=== PATIENT | female | born 1955 | race Caucasian/White ===

== ENCOUNTER 2017-02-20 12:16 | Emergency (ER) | payer OTHER ==
[~2017-02-20] VITALS: Ht 157.5 cm; Wt 70.5 kg
[2017-02-20 12:17] VITALS: Ht 157.5 cm; Wt 70.5 kg
[2017-02-20] MEDS ORDERED: IBUPROFEN 600 MG TAB PO ONE (13:00)
--- NOTE | 2017-02-20 13:02 | RADRPT ---
PROCEDURE: XR Left Hand. CLINICAL INDICATION: Trauma. Left thumb pain. Left hand pain. TECHNIQUE: Three views. Frontal lateral and oblique images of the left hand were obtained. COMPARISON: No prior studies are available for comparison. FINDINGS: There is no fracture or dislocation. The soft tissues are normal. Articular surfaces are intact. There is no lytic or blastic lesion. There is a ring on the fourth finger. There is no other radiopaque foreign body IMPRESSION: 1. Unremarkable images of the left hand. 2. The left thumb is normal. 3. Ring on the fourth finger. RPTAT: QQ .Clay Moses MD, MD Date Time Electronically viewed and signed by .Clay Moses MD, on 02/20/2017 13:01 .R/
--- NOTE | 2017-02-20 13:11 | ERD ---
ER Documentation Chief Complaint Date/Time DATE: 02/20/17 TIME: 13:11 Chief Complaint left thumb pain/injury HPI 61 year old female with left thumb pain. 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 She felt her thumb overextended backwards. After that she started feeling some pain but later noticed more bruising and more swelling. She was sent here by her work to evaluate for possible fracture. Patient denies any numbness or tingling. Her pain is a 5 out of 10, worse with movement. ROS All systems reviewed and are negative except as per history of present illness. PMhx/Soc Medical and Surgical Hx: pt denies Surgical Hx History of Surgery: No Anesthesia Reaction: No Hx Neurological Disorder: No Hx Respiratory Disorders: No Hx Cardiac Disorders: Yes (HTN) Hx Psychiatric Problems: No Hx Miscellaneous Medical Probl: No Hx Alcohol Use: No Hx Substance Use: No Hx Tobacco Use: No Smoking Status: Never smoker FmHx Family History: No diabetes Physical Exam Vitals Vital Signs Date Time Temp Pulse Resp B/P Pulse Ox O2 Delivery O2 Flow Rate FiO2 02/20/17 12:17 98.0 82 19 151/74 94 Physical Exam Const: Well appearing, no distress Head: Atraumatic Neck: Supple Resp: No respiratory distress Cardio: Regular rate and rhythm, no murmurs Skin: No petechiae or rashes Ext: No cyanosis, or edema. Left hand exam: Snuffbox tenderness. There is ecchymosis along the palmar aspect of the proximal thumb. There is tenderness over the first MCP joint. Otherwise the finger is nontender. All other fingers normal. Tendons intact. Strength and sensations intact. Neur: Awake and alert Psych: Normal Mood and Affect Results 24 hrs Current Medications Medications (Trade) Dose Ordered Sig/Galo Route PRN Reason Start Time Stop Time Status Last Admin Dose Admin Ibuprofen (Motrin) 600 mg ONCE ONCE PO 02/20/17 13:00 02/20/17 13:01 DC 02/20/17 12:50 Procedures/MDM X-ray left hand: No acute fractures or dislocations Patient is presenting with most likely a strain of the left thumb. There is no evidence of fracture or dislocation. All of her tendons are intact so I doubt tendon rupture. Ibuprofen was given for pain. Note for work was given. Over- the-counter analgesics were recommended as well as ice. Departure Diagnosis: Primary Impression: Finger injury Encounter type: initial encounter Laterality: left Qualified Code: S69.92XA - Injury of finger of left hand, initial encounter Condition: Stable EARL STORY MD Feb 20, 2017 13:11
== END 2017-02-20 13:18 | disposition home or self-care (01) ==
LOC: FTE 12:16
DX: S60.011A Contusion of right thumb without damage to nail, initial encounter (principal); I10 Essential (primary) hypertension; X50.9XXA Other and unspecified overexertion or strenuous movements or postures, initial encounter; Y92.512 Supermarket, store or market as the place of occurrence of the external cause